=== PATIENT | male | born 1960 | race African-American/Black ===

== ENCOUNTER 2017-08-22 10:34 | Emergency (ER) | payer SELFPAY ==
[~2017-08-22] VITALS: Ht 170.2 cm; Wt 77.3 kg
[~2017-08-22 10:34] MED LIST: ATIVAN 1MG T1 MG/TAB PO; DEXILANT60 MG PO; LISINOPRIL; LISINOPRIL20 MG PO; LORTAB 5/500 501 TAB PO; LORTAB 7.5/5001 TAB PO; MICARDIS80 MG PO; NEXIUM 20MG CAP20 MG PO; NEXIUM 40MG40 MG PO; NO HOME MEDICATIONS; NORCO 325 MG-51 TAB PO; NORCO 325 MG-7.1 TAB PO; PEPCID 20MG TAB20 MG PO; PHILLIPS COLON HEALT PO; PREDNISONE20 MG PO; PRILOSEC 20MG20 MG PO; PROTONIX 40MG T40 MG PO; REGLAN 10MG10 MG/TAB PO; THORAZINE 225 MG/TAB PO; UNKNOWN MED PO; VICODIN 5/5001 UDTAB PO; ZOFRAN ODT4 MG PO
[2017-08-22 10:40] VITALS: BP 122/71; TEMP 98.1
[2017-08-22] MEDS ORDERED: ROBAXIN 75750 MG/TAB PO (15:33)
[2017-08-22 15:44] VITALS: PULSE 91
== END 2017-08-22 15:47 | disposition home or self-care (01) ==
LOC: COL.ER 10:34
DX: S39.011A Strain of muscle, fascia and tendon of abdomen, initial encounter (principal); R20.2 Paresthesia of skin; K21.9 Gastro-esophageal reflux disease without esophagitis; F17.210 Nicotine dependence, cigarettes, uncomplicated; W10.9XXA Fall (on) (from) unspecified stairs and steps, initial encounter; Y92.009 Unspecified place in unspecified non-institutional (private) residence as the place of occurrence of the external cause

== ENCOUNTER 2017-08-25 21:41 | Emergency (ER) | payer SELFPAY ==
[~2017-08-25] VITALS: Ht 170.2 cm; Wt 72.7 kg
[~2017-08-25 21:41] MED LIST changes: +ROBAXIN 75750 MG/TAB PO
[2017-08-25 21:50] VITALS: BP 131/88; TEMP 97.7
[2017-08-25 22:21] LABS: BASO % 0.3 % (0.0-2.0); EOS % 0.3 % (0-4.0); GRAN # 7.1 (1.4-6.5); GRAN % 61.1 % (42.2-75.2); HEMATOCRIT 42.8 % (42.0-52.0); HEMOGLOBIN 14.8 g/dl (13.5-18.0); LYMPH # 2.9 (1.2-3.4); LYMPH % 25.3 % (20.0-51.0); MEAN CELL VOLUME 84 fl (80.0-100.0); MEAN CORPUSCULAR HEMOGLOBIN 29 pg (27.0-31.0); MEAN CORPUSCULAR HGB CONC 35 g/dl (33.0-37.0); MEAN PLATELET VOLUME 9.4 fl (7.4-10.4); MONO # 1.5 (0.1-0.6); MONO % 12.7 % (1.7-9.3); PLATELET COUNT 403 K/mm3 (130-400); RED BLOOD COUNT 5.09 M/mm3 (4.20-5.60); REDCELL DISTRIBUTION WIDTH-CV 12.7 % (11.5-14.5)
[2017-08-25 22:33] LABS: ALBUMIN 5.1 gm/dL (3.5-5.0); BILIRUBIN,TOTAL 1.4 mg/dL (0.0-1.0); CALCIUM 9.6 mg/dL (8.4-10.2); CREATININE, serum 1.75 mg/dL (0.66-1.25); POTASSIUM 3.7 mmol/L (3.4-5.0); TOTAL PROTEIN 9.2 gm/dL (6.4-8.2)
[2017-08-25] MEDS ORDERED: PRILOSEC 20MG20 MG PO (22:55)
[2017-08-25] MEDS ORDERED: ZOFRAN ODT4 MG PO (22:55)
[2017-08-25 23:30] VITALS: PULSE 96
== END 2017-08-25 23:30 | disposition home or self-care (01) ==
LOC: COL.ER 21:41
PROVIDERS: Emergency Medicine
DX: K27.9 Peptic ulcer, site unspecified, unspecified as acute or chronic, without hemorrhage or perforation (principal); K21.9 Gastro-esophageal reflux disease without esophagitis; F17.210 Nicotine dependence, cigarettes, uncomplicated
CPT/HCPCS: J1630; J2405; J7030

== ENCOUNTER 2017-08-31 11:24 | Inpatient (IN) | payer SELFPAY ==
[2017-08-31] VITALS (133 sets, daily range): BP systolic 125; BP diastolic 72; PULSE 91; TEMP 97.3; O2SAT 35–100
[~2017-08-31] VITALS: Ht 170.2 cm; Wt 67.4 kg
[2017-08-31 12:00] LABS: BASO % 0.2 % (0.0-2.0); GRAN # 11.6 (1.4-6.5); GRAN % 77.8 % (42.2-75.2); HEMOGLOBIN 12.8 g/dl (13.5-18.0); LYMPH # 1.7 (1.2-3.4); LYMPH % 11.6 % (20.0-51.0); MEAN CELL VOLUME 83 fl (80.0-100.0); MEAN CORPUSCULAR HEMOGLOBIN 29 pg (27.0-31.0); MEAN CORPUSCULAR HGB CONC 35 g/dl (33.0-37.0); MEAN PLATELET VOLUME 9.7 fl (7.4-10.4); MONO # 1.5 (0.1-0.6); MONO % 10.1 % (1.7-9.3); PLATELET COUNT 291 K/mm3 (130-400)
[2017-08-31 12:01] LABS: HEMATOCRIT 36.3 % (42.0-52.0)
[2017-08-31 12:08] LABS: LIPASE 171 U/L (23-300)
[2017-08-31 12:10] LABS: ALCOHOL(ethanol),MEDICAL < 10 mg/dL
[2017-08-31 12:17] LABS: ALANINE AMINOTRANSFERASE 59 U/L (21-72); ALBUMIN 4.8 gm/dL (3.5-5.0); ALKALINE PHOSPHATASE 136 U/L (50-136); ANION GAP 15 mmol/L (7-16); AST,SGOT 59 U/L (15-37); BILIRUBIN,TOTAL 2.1 mg/dL (0.0-1.0); BLOOD UREA NITROGEN 36 mg/dL (9-20); CALCIUM 9.2 mg/dL (8.4-10.2); CARBON DIOXIDE 32 mmol/L (22-30); CREATININE, serum 1.98 mg/dL (0.66-1.25); GLUCOSE 147 mg/dL (74-106); SODIUM 131 mmol/L (137-145); TOTAL PROTEIN 8.5 gm/dL (6.4-8.2)
[2017-08-31 12:22] LABS: C-REACTIVE PROTEIN < 0.5 mg/dL (0.0-0.9); CHLORIDE 83 mmol/L (98-107); POTASSIUM 2.6 mmol/L (3.4-5.0)
[2017-08-31 12:27] LABS: TROPONIN-I 0.013 ng/mL (0.000-0.034)
[2017-08-31 12:31] LABS: PROLACTIN 78.5 ng/mL (3.7-17.9)
[2017-08-31 12:45] LABS: MAGNESIUM 2.3 mg/dL (1.6-2.3); PHOSPHOROUS 5.7 mg/dL (2.5-4.5)
[2017-08-31 16:20] LABS: COLLECTION METHOD CLEAN CATCH
[2017-08-31 16:27] LABS: HYALINE CAST >12 /lpf; MUCOUS Present /lpf; PH 5 (5-8); SQUAMOUS EPITHELIAL 0-2 /hpf; URINE APPEARANCE Hazy; URINE BACTERIA None Seen /hpf; URINE BILIRUBIN Negative (NEGATIVE); URINE BLOOD Negative (NEGATIVE); URINE COLOR Yellow; URINE GLUCOSE Negative (NEGATIVE); URINE KETONE Negative (NEGATIVE); URINE LEUKOCYTE ESTERASE Negative (NEGATIVE); URINE NITRATE Negative (NEGATIVE); URINE PROTEIN(semi-quant) Negative (NEGATIVE); URINE RBC 0-2 /hpf; URINE UROBILINOGEN >=4.0 mg/dL (NEGATIVE)
[2017-09-01] VITALS (760 sets, daily range): BP systolic 105–131; BP diastolic 46–64; PULSE 74–100; TEMP 97.8–99.9; O2SAT 54–100
[2017-09-01 05:36] LABS: CALCIUM 8.2 mg/dL (8.4-10.2); CREATININE, serum 1.19 mg/dL (0.66-1.25); MAGNESIUM 1.9 mg/dL (1.6-2.3); PHOSPHOROUS 2.1 mg/dL (2.5-4.5); POTASSIUM 3.9 mmol/L (3.4-5.0)
[2017-09-01 05:44] LABS: BASO % 0.2 % (0.0-2.0); EOS % 0.1 % (0-4.0); GRAN # 5.9 (1.4-6.5); GRAN % 70.7 % (42.2-75.2); LYMPH # 1.6 (1.2-3.4); LYMPH % 19.3 % (20.0-51.0); MEAN CELL VOLUME 84 fl (80.0-100.0); MEAN CORPUSCULAR HGB CONC 35 g/dl (33.0-37.0); MEAN PLATELET VOLUME 9.6 fl (7.4-10.4); MONO # 0.8 (0.1-0.6); MONO % 9.5 % (1.7-9.3); RED BLOOD COUNT 3.12 M/mm3 (4.20-5.60); REDCELL DISTRIBUTION WIDTH-CV 13.2 % (11.5-14.5)
[2017-09-01 05:55] LABS: HEMATOCRIT 26.3 % (42.0-52.0); HEMOGLOBIN 9.1 g/dl (13.5-18.0); MEAN CORPUSCULAR HEMOGLOBIN 29 pg (27.0-31.0); PLATELET COUNT 162 K/mm3 (130-400)
[2017-09-01 06:24] LABS: URINE PROTEIN:CREAT RATIO 0.12 (0.00-0.14)
[2017-09-01 11:18] LABS: PARTIAL THROMBOPLASTIN TIME 22.5 SECONDS (26.0-37.0)
[2017-09-02] VITALS (7 sets, daily range): BP systolic 105–134; BP diastolic 48–73; PULSE 67–90; TEMP 97.4–98.8; O2SAT 78–100
[2017-09-02 07:39] LABS: CALCIUM 7.7 mg/dL (8.4-10.2); CREATININE, serum 1.01 mg/dL (0.66-1.25); MAGNESIUM 1.9 mg/dL (1.6-2.3); PHOSPHOROUS 2.7 mg/dL (2.5-4.5); POTASSIUM 3.1 mmol/L (3.4-5.0)
[2017-09-02 07:59] LABS: BASO % 0.2 % (0.0-2.0); EOS # 0.1 (0.0-0.7); GRAN # 3.7 (1.4-6.5); GRAN % 62.8 % (42.2-75.2); LYMPH # 1.5 (1.2-3.4); LYMPH % 24.9 % (20.0-51.0); MEAN CELL VOLUME 86 fl (80.0-100.0); MEAN CORPUSCULAR HGB CONC 34 g/dl (33.0-37.0); MEAN PLATELET VOLUME 9.5 fl (7.4-10.4); MONO # 0.7 (0.1-0.6); MONO % 10.9 % (1.7-9.3); PLATELET COUNT 132 K/mm3 (130-400); REDCELL DISTRIBUTION WIDTH-CV 13.4 % (11.5-14.5)
[2017-09-02 08:01] LABS: HEMOGLOBIN 8.1 g/dl (13.5-18.0); MEAN CORPUSCULAR HEMOGLOBIN 29 pg (27.0-31.0)
[2017-09-03] VITALS (7 sets, daily range): BP systolic 114–138; BP diastolic 55–697; PULSE 68–84; TEMP 98.2–98.9; O2SAT 95
[2017-09-03 06:06] LABS: BASO % 0.2 % (0.0-2.0); EOS # 0.1 (0.0-0.7); EOS % 1.7 % (0-4.0); GRAN % 68.3 % (42.2-75.2); LYMPH # 1.1 (1.2-3.4); LYMPH % 18.5 % (20.0-51.0); MEAN CELL VOLUME 85 fl (80.0-100.0); MEAN CORPUSCULAR HGB CONC 35 g/dl (33.0-37.0); MEAN PLATELET VOLUME 9.7 fl (7.4-10.4); MONO # 0.7 (0.1-0.6); MONO % 11.1 % (1.7-9.3); PLATELET COUNT 119 K/mm3 (130-400); RED BLOOD COUNT 2.74 M/mm3 (4.20-5.60); REDCELL DISTRIBUTION WIDTH-CV 13.3 % (11.5-14.5)
[2017-09-03 06:11] LABS: HEMOGLOBIN 8.1 g/dl (13.5-18.0); MEAN CORPUSCULAR HEMOGLOBIN 30 pg (27.0-31.0)
[2017-09-03 06:12] LABS: HEMATOCRIT 23.4 % (42.0-52.0)
[2017-09-03 06:17] LABS: CALCIUM 7.7 mg/dL (8.4-10.2); CREATININE, serum 1.05 mg/dL (0.66-1.25); MAGNESIUM 1.8 mg/dL (1.6-2.3); PHOSPHOROUS 2.7 mg/dL (2.5-4.5); POTASSIUM 3.5 mmol/L (3.4-5.0)
[2017-09-04 03:21] VITALS: BP 118/51; PULSE 66; TEMP 97.3
[2017-09-04 07:03] LABS: MEAN CELL VOLUME 86 fl (80.0-100.0); MEAN CORPUSCULAR HGB CONC 35 g/dl (33.0-37.0); MEAN PLATELET VOLUME 10.4 fl (7.4-10.4); PLATELET COUNT 113 K/mm3 (130-400); REDCELL DISTRIBUTION WIDTH-CV 13.2 % (11.5-14.5); RETIC % 3.6 % (0.5-3.52)
[2017-09-04 07:04] LABS: ALBUMIN 2.7 gm/dL (3.5-5.0); BILIRUBIN,TOTAL 0.4 mg/dL (0.0-1.0); CALCIUM 7.9 mg/dL (8.4-10.2); CHOLESTEROL RISK RATIO 4.6; CREATININE, serum 0.91 mg/dL (0.66-1.25); MAGNESIUM 1.6 mg/dL (1.6-2.3); POTASSIUM 3.7 mmol/L (3.4-5.0); TOTAL PROTEIN 5.4 gm/dL (6.4-8.2)
[2017-09-04 07:05] LABS: HEMATOCRIT 23.2 % (42.0-52.0); MEAN CORPUSCULAR HEMOGLOBIN 30 pg (27.0-31.0)
[2017-09-04 07:34] VITALS: BP 140/59; PULSE 64; TEMP 98.2
[2017-09-04 09:29] LABS: BAND 28 % (0-10); LYMPHOCYTE 33 % (20.0-51.0); NEUTROPHILS 36 % (42.0-75.2)
[2017-09-04 09:33] LABS: PLATELET ESTIMATE NORMAL (NORMAL)
[2017-09-04 09:34] LABS: HYPOCHROMIA 1+
[2017-09-04 11:41] VITALS: BP 117/51; PULSE 60; TEMP 98
[2017-09-04] MEDS ORDERED: CARAFATE 1GM1 G PO ×2 (15:24→15:29)
[2017-09-04] MEDS ORDERED: LIPITOR20 MG PO (15:24)
[2017-09-04] MEDS ORDERED: LOPRESSOR 225 MG/TAB PO (15:24)
[2017-09-04] MEDS ORDERED: FERROUS SU325 MG/TAB PO (15:24)
[2017-09-04] MEDS ORDERED: NORCO 325 MG-51 TAB PO (15:24)
[2017-09-04] MEDS ORDERED: KEPPRA 500MG500 MG PO (15:24)
[2017-09-04] MEDS ORDERED: PROTONIX 40MG T40 MG PO (15:24)
[2017-09-04] MEDS ORDERED: ASPIRIN 32325 MG/TAB PO (15:24)
[2017-09-04] MEDS ORDERED: THE MEDICINE S200 M2 PO (15:29)
[2017-09-04] MEDS ORDERED: PROBIOTIC FORMU1 CAP PO (15:29)
[2017-09-04] MEDS ORDERED: AMITRIPTYLINE H50 M1 PO (15:29)
[2017-09-04] MEDS ORDERED: ZOFRAN ODT4 MG PO (15:29)
[2017-09-04] MEDS ORDERED: L-CARNITINE500 M1 PO (15:29)
[2017-09-04] MEDS ORDERED: MIRALAX510G PO (15:29)
[2017-09-04] MEDS ORDERED: SENOKOT S 50 MG1 TAB PO (15:29)
[2017-09-04 15:39] VITALS: BP 118/53; PULSE 63; TEMP 98
== END 2017-09-04 17:51 | disposition home or self-care (01) | DRG 100 ==
LOC: COL.ER 11:24 → ICU 15:19 → PEDS 09-03 17:02
PROVIDERS: Emergency Medicine; Internal Medicine; Internal Medicine Gastroenterology
PROC: 0DB38ZX Excision of Lower Esophagus, Via Natural or Artificial Opening Endoscopic, Diagnostic (ICD-10-PCS; principal; 2017-09-01 08:00)
DX: R56.9 Unspecified convulsions (principal); I21.4 Non-ST elevation (NSTEMI) myocardial infarction; E87.1 Hypo-osmolality and hyponatremia; E87.3 Alkalosis; N17.9 Acute kidney failure, unspecified; R65.10 Systemic inflammatory response syndrome (SIRS) of non-infectious origin without acute organ dysfunction; E86.0 Dehydration; E87.6 Hypokalemia; G43.A0 Cyclical vomiting, in migraine, not intractable; K21.0 Gastro-esophageal reflux disease with esophagitis; K44.9 Diaphragmatic hernia without obstruction or gangrene; F17.210 Nicotine dependence, cigarettes, uncomplicated; R06.6 Hiccough; D50.0 Iron deficiency anemia secondary to blood loss (chronic)
CPT/HCPCS: 99223-AI; 99232-AI; 99233-AI; 99239; A9585; C1751; C9113; J0696; J1200; J1644; J1650; J1953; J2405; J2543; J2704; J3411; J3475; J3480; J7030

== ENCOUNTER 2018-01-31 14:27 | Outpatient (RCR) | payer MEDICAID ==
[~2018-01-31 14:27] MED LIST changes: +AMITRIPTYLINE H50 M1 PO; +ASPIRIN 32325 MG/TAB PO; +CARAFATE 1GM1 G PO; +FERROUS SU325 MG/TAB PO; +KEPPRA 500MG500 MG PO; +L-CARNITINE500 M1 PO; +LIPITOR20 MG PO; +LOPRESSOR 225 MG/TAB PO; +MIRALAX510G PO; +PROBIOTIC FORMU1 CAP PO; +SENOKOT S 50 MG1 TAB PO; +THE MEDICINE S200 M2 PO
== END 2018-05-01 | disposition home or self-care (01) ==
LOC: MKS.ESL.PT
DX: R29.898 Other symptoms and signs involving the musculoskeletal system (principal)

== ENCOUNTER 2022-09-19 11:44 | Emergency (ER) | payer MEDICAID ==
[~2022-09-19] VITALS: Ht 170.2 cm; Wt 84.1 kg
[2022-09-19 11:46] VITALS: BP 140/81; TEMP 97.9
[2022-09-19 12:59] LABS: ALBUMIN 3.3 gm/dL (3.4-4.8); BILIRUBIN,TOTAL 1.2 mg/dL (0.2-1.2); C-REACTIVE PROTEIN 10.69 mg/dL (0.00-0.50); CREATININE, serum 1.03 mg/dL (0.72-1.25); POTASSIUM 3.8 mmol/L (3.5-4.5); TOTAL PROTEIN 8.8 gm/dL (6.2-8.1); URIC ACID 7.4 mg/dL (3.5-7.2)
[2022-09-19 13:28] LABS: HEMOGLOBIN 12.7 g/dl (13.5-18.0); MEAN CELL VOLUME 82 fl (80.0-100.0); MEAN CORPUSCULAR HEMOGLOBIN 29 pg (27-31); MEAN CORPUSCULAR HGB CONC 35 g/dl (33.0-37.0); PLATELET COUNT 255 K/mm3 (130-400); RED BLOOD COUNT 4.43 M/mm3 (4.20-5.60); REDCELL DISTRIBUTION WIDTH-CV 13.9 % (11.5-14.5)
[2022-09-19 13:31] LABS: HEMATOCRIT 36.2 % (42.0-52.0)
[2022-09-19] MEDS ORDERED: NORCO 325 MG-51 TAB PO (13:51)
[2022-09-19] MEDS ORDERED: PREDNISONE10 MG PO (13:51)
[2022-09-19 14:17] LABS: BAND 3 % (0-10); LYMPHOCYTE 11 % (20.0-51.0); NEUTROPHILS 72 % (42.0-75.2)
[2022-09-19 14:18] LABS: ANISOCYTOSIS 1+
[2022-09-19 14:20] LABS: ERYTHROCYTE SEDIMENTATION RATE 87 mm/hr (0-30)
[2022-09-19 15:16] VITALS: PULSE 89
--- NOTE | 2022-09-19 15:17 | NUR ---
Phone call made to [facility] transportation and arranged for patient to be picked up and transported back home. Confirmation #[id number]
[2022-09-28] MEDS ORDERED: ZOFRAN ODT4 MG PO (16:01)
== END 2022-09-19 15:18 | disposition home or self-care (01) ==
LOC: COL.ER 11:44
PROVIDERS: Emergency Medicine
DX: M13.811 Other specified arthritis, right shoulder (principal); D72.829 Elevated white blood cell count, unspecified
CPT/HCPCS: J1885; J2270

== ENCOUNTER 2023-01-26 17:32 | Emergency (ER) | payer MEDICARE, MEDICAID ==
[~2023-01-26] VITALS: Ht 170.2 cm; Wt 77.3 kg
[~2023-01-26 17:32] MED LIST changes: +PREDNISONE10 MG PO
[2023-01-26 17:42] VITALS: TEMP 98.2
[2023-01-26 19:27] VITALS: BP 147/94; PULSE 103
== END 2023-01-26 19:32 | disposition home or self-care (01) ==
LOC: COL.ER 17:32
DX: S06.0X0A Concussion without loss of consciousness, initial encounter (principal); S01.81XA Laceration without foreign body of other part of head, initial encounter; W01.198A Fall on same level from slipping, tripping and stumbling with subsequent striking against other object, initial encounter